=== PATIENT | female | born 1940 | race Caucasian/White ===

== ENCOUNTER 2016-06-27 04:04 | Emergency (ER) | payer MEDICARE, OTHER | END 2016-06-27 04:05 | disposition home or self-care (01) | LOC: ER 04:04 | DX: J10.1 Influenza due to other identified influenza virus with other respiratory manifestations (principal); I10 Essential (primary) hypertension; Z88.0 Allergy status to penicillin; Z79.899 Other long term (current) drug therapy | CPT/HCPCS: 87502 ==